=== PATIENT | female | born 1995 | race Caucasian/White ===

== ENCOUNTER 2018-12-29 14:45 | Emergency (ER) | payer OTHER ==
[~2018-12-29] VITALS: Ht 147.3 cm; Wt 75.3 kg
[2018-12-29 15:00] VITALS: BP 160/94
--- NOTE | 2018-12-29 15:11 | NUR ---
LABS DRAWN FROM IV INSERTION AND GIVEN TO ELECTRICAL CONTROLS TECHNICIAN AT BEDSIDE.
[2018-12-29 15:22] LABS: APPEARANCE,URINE CLEAR (CLEAR); BASOPHILS % (AUTO) 0.3 % (0.0-2.0); BILIRUBIN,URINE NEGATIVE (NEGATIVE); BLOOD, URINE TRACE-I (NEGATIVE); COLOR,URINE ORANGE (YELLOW); EOSINOPHILS # (AUTO) 0.1 K/uL (0-0.4); EOSINOPHILS % (AUTO) 0.7 % (0.0-4.0); HEMATOCRIT 38.2 % (36-48); HEMOGLOBIN 12.3 g/dL (12.0-16.0); LEUKOCYTE ESTERASE ,URINE NEGATIVE (NEGATIVE); LYMPHOCYTES # (AUTO) 1.8 K/uL (2.5-16.5); LYMPHOCYTES % (AUTO) 22.2 % (20.5-51.1); MEAN CORPUSCULAR HEMOGLOBIN 29 pg (27-31); MEAN CORPUSCULAR HGB CONC 32 g/dL (33-37); MEAN CORPUSCULAR VOLUME 89.8 fL (80-94); MONOCYTES # (AUTO) 0.6 K/uL (0.8-1.0); MONOCYTES % (AUTO) 6.9 % (1.7-9.3); NEUTROPHILS # (AUTO) 5.7 K/uL (1.8-7.7); NEUTROPHILS % (AUTO) 69.9 % (42.2-75.2); NITRITE, URINE NEGATIVE (NEGATIVE); PLATELET COUNT (AUTO) 221 K/uL (140-450); RED BLOOD CELL COUNT(AUTO) 4.25 MIL/uL (4.20-5.40); RED CELL DISTRIBUTION WIDTH 13.3 % (11.6-13.7); UGLUCOSE NEGATIVE (NEGATIVE); WHITE BLOOD COUNT (AUTO) 8.1 K/uL (4.8-10.8)
--- NOTE | 2018-12-29 15:29 | NUR ---
PATIENT PRESENTS TO ED WITH HIGH BP (146/86 MMHG) COMING FROM HER OB APPT 1 HR AGO. -DIZZINESS -BOV -NECK PAIN -N/V. PT IS CURRENTLY 7 MONTHS AND IS CURRENTLY TAKING VITAMINS. SKIN IS PINK/WARM/DRY; AAOX4 WITH EVEN AND STEADY GAIT; LUNGS CLEAR BL; HR EVEN AND REGULAR; PT DENIES ANY FEVER, CP, SOB, OR COUGH AT THIS TIME; PATIENT STATES PAIN OF 0/10 AT THIS TIME; VSS; PATIENT POSITIONED FOR COMFORT; HOB ELEVATED; BEDRAILS UP X2; BED DOWN. ER MD MADE AWARE OF PT STATUS. PMH: NONE ALLERGIES: NONE
[2018-12-29 15:43] LABS: PROTHROMBIN TIME 9.1 secs (10.8-13.4)
[2018-12-29 15:45] LABS: ALBUMIN 1.7 g/dL (3.4-5.0); ANION GAP 11.3 (8-16); CARBON DIOXIDE 26.4 mmol/L (21-32); POTASSIUM 3.7 mmol/L (3.5-5.1); TOTAL BILIRUBIN 0.1 mg/dL (0.0-1.0)
[2018-12-29] MEDS ORDERED: hydrALAZINE 20 MG/ML VIAL IVP ONE (15:45)
--- NOTE | 2018-12-29 15:51 | NUR ---
CURRENT BP 138/94. PER BREE GENTILE TO GIVE HYDRALAZINE ORDERED.
--- NOTE | 2018-12-29 15:57 | NUR ---
PER , HOLD HYDRALAZINE.
[2018-12-29 16:39] LABS: RBC,URINE 0-5 /HPF (0-5); WBC,URINE 0-5 /HPF (0-5)
--- NOTE | 2018-12-29 16:40 | NUR ---
IV removed, catheter intact and site benign. Applied folded 4x4 gauze and tape to stop bleeding.
[2018-12-29 16:41] VITALS: BP 138/94
--- NOTE | 2018-12-29 16:41 | NUR ---
Patient discharged with v/s stable. Written and verbal after care instructions given and explained. Patient verbalized understanding. Ambulatory with steady gait. All questions addressed prior to discharge. Advised to follow up with PMD.
== END 2018-12-29 16:41 | disposition home or self-care (01) ==
LOC: MED 14:45
DX: O16.2 Unspecified maternal hypertension, second trimester (principal); Z3A.28 28 weeks gestation of pregnancy
CPT/HCPCS: 36415; 80053; 81001; 83690; 85025; 85610; 85730; 99283; J0360

== ENCOUNTER 2019-01-12 14:48 | Inpatient (IN) | payer OTHER ==
[~2019-01-12] VITALS: Ht 157.5 cm; Wt 80.7 kg
[2019-01-12 15:00] VITALS: BP 172/107
--- NOTE | 2019-01-12 15:00 | NUR ---
PT AMBULATED TO CHAIR C
--- NOTE | 2019-01-12 15:16 | NUR ---
DR SCOTT SPOKE WITH DR CERVANTES, PT TO GO STRAIGHT TO L&D. GAVE REPORT TO AMI BURTON FROM L&D. PT TAKEN TO L&D VIA WHEELCHAIR AT THIS TIME.
[2019-01-12] MEDS ORDERED: MAG SULF 20 GM/H2O PREMIX DRIP 500 ML IV SCH (15:50)
[2019-01-12] MEDS ORDERED: LABETALOL 20 MG/4 ML VIAL IVP SCH (16:04)
[2019-01-12] MEDS ORDERED: BETAMETH ACET/BETAMETH NA PH 30 MG/5 ML VIAL IM ONE (16:12)
[2019-01-12] MEDS ORDERED: LABETALOL 100 MG/20 ML VIAL ONE ×2 (16:13→19:37)
[2019-01-12] MEDS ORDERED: MAG SULF 2000 MG/WATER PREMIX 100 ML IV SCH ×2 (16:15→17:00)
[2019-01-12] MEDS: LABETALOL 100 MG/20 ML VIAL IVP SCH ×2 (16:29→19:07)
[2019-01-12 16:30] LABS: BASOPHILS # (AUTO) 0.1 K/uL (0.00-0.22); BASOPHILS % (AUTO) 0.7 % (0.0-2.0); EOSINOPHILS # (AUTO) 0.1 K/uL (0-0.4); EOSINOPHILS % (AUTO) 0.8 % (0.0-4.0); HEMATOCRIT 38.7 % (36-48); HEMOGLOBIN 12.7 g/dL (12.0-16.0); LYMPHOCYTES # (AUTO) 1.7 K/uL (2.5-16.5); MEAN CORPUSCULAR HEMOGLOBIN 29 pg (27-31); MEAN CORPUSCULAR HGB CONC 33 g/dL (33-37); MEAN CORPUSCULAR VOLUME 89.1 fL (80-94); MONOCYTES # (AUTO) 0.5 K/uL (0.8-1.0); MONOCYTES % (AUTO) 6.3 % (1.7-9.3); NEUTROPHILS # (AUTO) 5.6 K/uL (1.8-7.7); NEUTROPHILS % (AUTO) 71.2 % (42.2-75.2); PLATELET COUNT (AUTO) 203 K/uL (140-450); RED BLOOD CELL COUNT(AUTO) 4.34 MIL/uL (4.20-5.40); RED CELL DISTRIBUTION WIDTH 13.9 % (11.6-13.7); WHITE BLOOD COUNT (AUTO) 7.9 K/uL (4.8-10.8)
[2019-01-12 16:57] LABS: ALBUMIN 1.2 g/dL (3.4-5.0); ANION GAP 11.7 (8-16); CARBON DIOXIDE 25.4 mmol/L (21-32); CREATININE 1.2 mg/dL (0.6-1.3); MAGNESIUM 1.4 mg/dL (1.8-2.4); POTASSIUM 4.1 mmol/L (3.5-5.1); TOTAL BILIRUBIN 0.1 mg/dL (0.0-1.0)
[2019-01-12 17:05] LABS: PROTHROMBIN TIME 8.6 secs (10.8-13.4)
[2019-01-12] MEDS ORDERED: MAG SULF 20 GM/H2O PREMIX DRIP 500 ML IV ONE (17:24)
[2019-01-12 17:38] LABS: URIC ACID 6.1 mg/dL (2.6-7.2)
[2019-01-12] MEDS ORDERED: BETAMETH ACET/BETAMETH NA PH 30 MG/5 ML VIAL IM SCH (21:00)
[2019-01-12] MEDS ORDERED: hydrALAZINE 20 MG/ML VIAL ONE (21:03)
[2019-01-12] MEDS ORDERED: hydrALAZINE 20 MG/ML VIAL IVP SCH (21:05)
[2019-01-12 21:35] VITALS: BP 148/92
[2019-01-13] MEDS ORDERED: LABETALOL 100 MG TAB PO SCH (09:00)
== END 2019-01-12 22:10 | disposition short-term general hospital (02) | DRG 833 ==
LOC: MED 14:48 → OBSVTOIN 15:25 → MFCC 15:25 → UNDODISOB 22:10
PROVIDERS: ADMIT Obstetrics & Gynecology; ATTEND Obstetrics & Gynecology
DX: O14.13 Severe pre-eclampsia, third trimester (principal); O36.5930 Maternal care for other known or suspected poor fetal growth, third trimester, not applicable or unspecified; Z3A.33 33 weeks gestation of pregnancy
CPT/HCPCS: 36415; 76805; 80053; 83735; 84550; 85025; 85384; 85610; 85730; 86886; 86900; 86901; 99281; G0378; J0360; J0702; J3475; J3490; Q0092

== ENCOUNTER 2023-10-31 09:24 | Emergency (ER) | payer MEDICAID, OTHER ==
[~2023-10-31] VITALS: Ht 152.4 cm; Wt 86.2 kg
[2023-10-31 09:41] VITALS: BP 157/96; PULSE 93; RESP 18; TEMP 98.6; O2SAT 100
--- NOTE | 2023-10-31 09:54 | NUR ---
to bed 6.
--- NOTE | 2023-10-31 10:04 | NUR ---
27 y/o female bib self requesting STD check. Per patient, her has boyfriend has penile discharge and wants to get tested for STD. Denies any pain or discomfort at this time. Denies any other complaints. Call light is within reach. Medical History: Denies NKDA
--- NOTE | 2023-10-31 10:17 | NUR ---
blood drawn, walked to lab
--- NOTE | 2023-10-31 10:22 | NUR ---
Patient being evaluated by physician at bedside.
--- NOTE | 2023-10-31 10:24 | NUR ---
to chair cristian
[2023-10-31 10:43] LABS: APPEARANCE,URINE SL CLOUDY (CLEAR); BILIRUBIN,URINE NEGATIVE (NEGATIVE); BLOOD, URINE 3+ (NEGATIVE); COLOR,URINE AMBER (YELLOW); LEUKOCYTE ESTERASE ,URINE 1+ (NEGATIVE); NITRITE, URINE NEGATIVE (NEGATIVE); PROTEIN,URINE 2+ (NEGATIVE); UGLUCOSE NEGATIVE (NEGATIVE); UROBILINOGEN,URINE 0.2 EU/dL (0.2 - 1)
[2023-10-31] MEDS ORDERED: LIDOCAINE MPF 1% 5 ML ONE (10:46)
[2023-10-31] MEDS ORDERED: cefTRIAXone 500 MG VIAL ONE (10:46)
[2023-10-31] MEDS: cefTRIAXone 500 MG in LIDOCAINE MPF 1% 1 ML IM ONE (10:49)
[2023-10-31 10:55] LABS: BACTERIA,URINE FEW /HPF (None Seen); MUCUS,URINE 1+ /LPF (None Seen); SQUAMOUS EPITHELIAL CELL,UR 0-3 (FEW) /LPF (0-3 (FEW))
[2023-10-31 12:21] LABS: HIV RAPID SCREEN NON-REACTIVE (NON REACTIV)
[2023-10-31] MEDS ORDERED: DOXY-690 PO (12:51)
--- NOTE | 2023-10-31 13:04 | NUR ---
PT DISCHARGED. PT LEFT W OUT PAPERWORK
[2023-10-31 13:54] LABS: RAPID PLASMA REAGIN NON-REACTIVE (Non Reactiv)
== END 2023-10-31 13:04 | disposition home or self-care (01) ==
LOC: MED 09:24
DX: R30.0 Dysuria (principal); Z20.2 Contact with and (suspected) exposure to infections with a predominantly sexual mode of transmission; R03.0 Elevated blood-pressure reading, without diagnosis of hypertension; Z79.899 Other long term (current) drug therapy
CPT/HCPCS: 81001; 81025; 86592; 86703; 87086; 87491; 96372; 99283; J0696; J2001